=== PATIENT | male | born 1960 | race Two or more races ===

== ENCOUNTER 2023-01-03 08:49 | Emergency (ER) | payer MEDICAID ==
[~2023-01-03] VITALS: Ht 152.4 cm; Wt 69.8 kg
[~2023-01-03 08:49] MED LIST: ASCO500T11 PO; ASPI-325 PO; ATOR20TA50 PO; BLOO-156 XX; BLOO1KIT60 XX; CAR3125T PO; CHOL20007 PO; CYANCRY PO; EMPA1TAB3 PO; ERGO1CAP23 PO; LANC-347 XX; METF-372 PO; OMEG-20 PO; TICA90TA PO; ZINC220C8 PO
[2023-01-03 09:36] LABS: Basophils # (auto) 0.1 10 ^3/uL (0-0.2); Basophils % (auto) 1.5 % (0.0-2.0); Eosinophils # (auto) 0.1 10 ^3/uL (0-0.8); Eosinophils % (auto) 0.6 % (0.0-7.0); Hematocrit 45.6 % (41.0-53.0); Hemoglobin 15.4 g/dL (13.5-17.5); Lymphocytes % (auto) 10.2 % (10.0-50.0); Mean Corpuscular Hemoglobin 31.5 pg (28.0-32.0); Mean Corpuscular Hgb Conc. 33.8 g/dL (32.0-36.0); Mean Corpuscular Volume 93.1 fL (80.0-100.0); Monocytes # (auto) 0.9 10 ^3/uL (0-1.3); Monocytes % (auto) 9.1 % (0.0-12.0); Neutrophils % (auto) 78.6 % (37.0-80.0); Nucleated Red Blood Cells % 0.1 %; Red Blood Cells 4.89 10^6/uL (4.5-5.90); White Blood Cell 10.2 10^3/uL (4.4-10.8)
[2023-01-03 09:58] LABS: Albumin 3.4 g/dL (3.4-5.0); Calcium 9.3 mg/dL (8.5-10.1); Potassium 4.4 mmol/L (3.5-5.1)
[2023-01-03 10:02] LABS: BUN/Creatinine Ratio 21.1 (10.0-20.0); Bilirubin, Total 1.2 mg/dL (0.2-1.0); Total Protein 7.2 g/dL (6.4-8.2)
[2023-01-03 11:07] LABS: INR 1.02 (0.9-1.15); Partial Thromboplastin Time 26.2 SEC (24.5-34.5)
[2023-01-03 11:41] VITALS: PULSE 71; RESP 10; O2SAT 90
[2023-01-03 12:17] VITALS: BP 114/75; PULSE 70; RESP 20; TEMP 97.9; O2SAT 91
[2023-01-03 14:33] LABS: Urine Bacteria NONE SEEN /hpf (None Seen); Urine Blood 1+ /uL (Negative); Urine Specific Gravity 1.016 (1.001-1.035); Urine WBC 1 /hpf (0 - 3)
== END 2023-01-03 13:45 | disposition home or self-care (01) ==
LOC: ER 08:49
DX: I25.10 Atherosclerotic heart disease of native coronary artery without angina pectoris (principal); R77.8 Other specified abnormalities of plasma proteins; F41.9 Anxiety disorder, unspecified; Z79.899 Other long term (current) drug therapy; Z79.82 Long term (current) use of aspirin; Z79.84 Long term (current) use of oral hypoglycemic drugs; Z98.890 Other specified postprocedural states
CPT/HCPCS: 36415; 71045; 80053; 81001; 83735; 83880; 84484; 85025; 85610; 85730; 93005